=== PATIENT | male | born 1995 | race Caucasian/White ===

== ENCOUNTER 2017-02-11 08:22 | Emergency (ER) | payer OTHER ==
[~2017-02-11] VITALS: Ht 180.3 cm; Wt 97.7 kg
[2017-02-11 08:23] VITALS: BP 139/88
[2017-02-11] MEDS ORDERED: IBUPROFEN 600 MG TAB PO ONE (08:45)
[2017-02-11] MEDS ORDERED: IBUP-1022 PO (09:32)
--- NOTE | 2017-02-11 09:39 | REP ---
Left foot series: Four views. History: Left foot pain lateral aspect. Findings: Four views of the left foot show overall normal mineralization. Bones, joints, and soft tissues are unremarkable. No fracture or periosteal reaction is appreciated. Impression: Negative radiographs of the left foot. Signed by Benjy Lyle MD 02/11/2017 04:06 P
== END 2017-02-11 09:46 | disposition home or self-care (01) ==
LOC: M ED 08:22
DX: M79.672 Pain in left foot (principal)

== ENCOUNTER 2018-02-10 16:39 | Emergency (ER) | payer OTHER ==
[2018-02-10] MEDS: IBUPROFEN 600 MG TAB PO (18:22)
[2018-02-10] MEDS: ONDANSETRON 4 MG ORAL DISINTEGRATING TAB (Q0162 PER 1MG) PO (18:22)
[2018-02-10] MEDS: DICYCLOMINE 10 MG CAP PO (18:24)
[2018-02-10 18:49] LABS: BASO % 0.3 % (0.0-1.0); EOS # 0.3 10^3/uL (0.0-0.50); HEMATOCRIT 46.2 % (42.0-52.0); HEMOGLOBIN 15.9 g/dl (13.5-17.5); IMMATURE GRANULOCYTE % 0.2 % (0-3.0); LYMPH % 17.3 % (24.0-44.0); MEAN CORPUSCULAR HEMOGLOBIN 30.8 pg (27.0-33.0); MEAN CORPUSCULAR HGB CONC 34.4 g/dl (32.0-36.5); MEAN CORPUSCULAR VOLUME 89.5 fl (80.0-96.0); MONO # 0.5 10^3/uL (0.0-0.8); MONO % 8.7 % (0.0-5.0); NEUTROPHILS % 68.5 % (36.0-66.0); PLATELET COUNT, AUTOMATED 171 10^3/uL (150-450); RED BLOOD COUNT 5.16 10^6/uL (4.30-6.10); RED CELL DISTRIBUTION WIDTH 11.9 % (11.5-14.5); WHITE BLOOD COUNT 5.9 10^3/uL (4.0-10.0)
[2018-02-10 19:00] LABS: ANION GAP 5 MEQ/L (8-16); BLOOD UREA NITROGEN 14 MG/DL (7-18); CALCIUM LEVEL 8.7 MG/DL (8.5-10.1); CARBON DIOXIDE LEVEL 31 MEQ/L (21-32); CHLORIDE LEVEL 104 MEQ/L (98-107); CREATININE FOR GFR 0.93 MG/DL (0.70-1.30); GLOMERULAR FILTRATION RATE > 60.0 (>60); GLUCOSE, FASTING 88 MG/DL (70-100); POTASSIUM SERUM 4.3 MEQ/L (3.5-5.1); SODIUM LEVEL 140 MEQ/L (136-145)
[2018-02-10 19:15] LABS: INFLUENZA A AMPLIFICATION NEGATIVE (NEGATIVE); INFLUENZA B AMPLIFICATION NEGATIVE (NEGATIVE)
== END 2018-02-10 19:47 | disposition home or self-care (01) ==
LOC: M ED 16:39
DX: B34.9 Viral infection, unspecified (principal); R10.84 Generalized abdominal pain; R11.2 Nausea with vomiting, unspecified; R19.7 Diarrhea, unspecified
CPT/HCPCS: Q0162

== ENCOUNTER → 2021-02-12 | Outpatient (CLI) | payer OTHER ==
[~2021-02-12] MED LIST: DICY10CA13 PO; IBUP-1022 PO; ZOFR4TAB14 PO
== END ==
LOC: M LABSMTC 10:47
PROVIDERS: ATTEND Pediatrics
DX: Z11.52 Encounter for screening for COVID-19 (principal)

== ENCOUNTER → 2022-07-20 | Outpatient (CLI) | payer OTHER | LOC: M CARPUL 07-06 09:03 | PROVIDERS: ATTEND Physician Assistant | DX: R05.9 Cough, unspecified (principal) ==

== ENCOUNTER → 2023-05-13 | Outpatient (REF) | payer OTHER ==
[~2023-05-13] MED LIST changes: +DICY-61 PO; -DICY10CA13 PO
== END ==
LOC: M PLAIMG 12:25 → EDSTATUS 06-04 18:53
PROVIDERS: ATTEND Nurse Practitioner Family
DX: M25.562 Pain in left knee (principal); M54.59 Other low back pain